=== PATIENT | female | born 1970 | race Two or more races ===

== ENCOUNTER 2022-01-30 00:57 | Emergency (ER) | payer SELFPAY ==
[~2022-01-30] VITALS: Ht 165.1 cm; Wt 90.7 kg
[2022-01-30 03:00] VITALS: BP 134/69
== END 2022-01-30 03:33 | disposition home or self-care (01) ==
LOC: EDBD 00:57 → ER 00:57
DX: S01.01XA Laceration without foreign body of scalp, initial encounter (principal); F10.920 Alcohol use, unspecified with intoxication, uncomplicated; W19.XXXA Unspecified fall, initial encounter; Y93.89 Activity, other specified; Y92.89 Other specified places as the place of occurrence of the external cause; Y99.8 Other external cause status
CPT/HCPCS: 12002; 70450

== ENCOUNTER 2023-12-18 11:38 | Emergency (ER) | payer MEDICAID, OTHER ==
[~2023-12-18] VITALS: Ht 154.9 cm; Wt 86.2 kg
[2023-12-18 13:52] LABS: Urine Bacteria FEW /hpf (None Seen); Urine Blood 3+ /uL (Negative); Urine Color Light-Orange (Yellow); Urine Protein, UAD 2+ (Negative); Urine Specific Gravity 1.033 (1.001-1.035); Urine Urobilinogen Normal (Negative); Urine WBC 2026 /hpf (0 - 5)
[2023-12-18 13:54] LABS: Urine Clarity Cloudy (Clear)
[2023-12-18] MEDS ORDERED: NITR-87 PO (14:02)
[2023-12-18 14:29] VITALS: BP 144/76; PULSE 87; RESP 18; TEMP 97.6; O2SAT 100
== END 2023-12-18 15:11 | disposition home or self-care (01) ==
LOC: ER 11:38
DX: N30.90 Cystitis, unspecified without hematuria (principal)
CPT/HCPCS: 81001